=== PATIENT | male | born 1965 | race Caucasian/White ===

== ENCOUNTER → 2017-09-22 | Outpatient (CLI) | payer OTHER ==
[~2017-09-22] MED LIST: CEPHALEXIN500 M1 PO; NO HOME MEDICATIONS; NSAID
== END ==
LOC: BHSO 13:45
DX: F41.1 Generalized anxiety disorder (principal)

== ENCOUNTER 2024-08-10 09:48 | Day surgery (SDC) | payer OTHER ==
[~2024-08-10] VITALS: Ht 180.3 cm; Wt 85.9 kg
[~2024-08-10 09:48] MED LIST changes: +LR 1,000 ML IV SCH; +MOBIC15 MG PO; +Ondansetron 4 MG/2 ML VIAL IV PRN; +XANAX 1MG1 MG PO
[2024-08-10 12:45] VITALS: BP 109/51; PULSE 70; TEMP 97.2
--- NOTE | 2024-08-10 12:45 | NUR ---
PATIENT AMBULATED TO CHAIR WITH STEADY GAIT, ASSIST OF 2. ALERT AND AWAKE. DENIES PAIN, NAUSEA AND SHORTNESS OF BREATH. BREATHING REGULAR AND UNLABORED ON ROOM AIR. SKIN WARM AND DRY. IV IN PLACE. NURSE HANDOFF COMPLETED IN ROOM. SEE CHART FOR VITAL SIGNS. PATIENT HAD CRANBERRY JUICE AND A MUFFIN. BOTH FOOD AND DRINK TOLERATED WELL. NO DYSPHAGIA. CALL LIGHT IN REACH. SPOUSE PRESENT IN ROOM.
[2024-08-10 12:51] VITALS: BP 111/68; PULSE 68; TEMP 97.2
[2024-08-10 13:00] VITALS: BP 109/81; PULSE 78
[2024-08-10 13:15] VITALS: BP 93/71; PULSE 67
[2024-08-10 13:29] VITALS: BP 112/76; PULSE 68
--- NOTE | 2024-08-10 13:33 | NUR ---
1304: DISCHARGE TEACHING COMPLETED WITH PRINTED EDUCATION AND INSTRUCTIONS SENT HOME WITH PATIENT. PATIENT VERBALIZED UNDERSTANDING OF TEACHING. 1315: MET WITH PATIENT AND SPOUSE IN ROOM TO DISCUSS PROCEDURE. 1330:IV REMOVED. GAUZE AND COBAN PLACED OVER SITE. [id number]: PATIENT DISCHARGED HOME WITH SPOUSE ([facility]) TRANSPORT.
== END 2024-08-10 13:33 | disposition home or self-care (01) ==
LOC: SDCO 09:48
DX: Z12.11 Encounter for screening for malignant neoplasm of colon (principal); R19.5 Other fecal abnormalities; Z85.46 Personal history of malignant neoplasm of prostate
CPT/HCPCS: J2704